=== PATIENT | male | born 1950 | race Caucasian/White ===

== ENCOUNTER → 2017-05-09 | Outpatient (CLI) | payer OTHER ==
[~2017-05-09] MED LIST: AZOR 5-40 MG T1 EACH PO; SYNTHROID100 MCG PO; TRAMADOL-ACETA1 EACH PO; VIMOVO 500-201 EACH; ZANAFLEX4 M1 PO
[2017-05-10 02:07] LABS: HBsAG-EMPLOYEE EXPOSURE Negative (Negative); HIV Ab-EMPLOYEE EXPOSURE Non Reactive (Non Reactive)
== END ==
LOC: M.LAB 11:04
PROVIDERS: Surgery
DX: Z11.59 Encounter for screening for other viral diseases (principal)

== ENCOUNTER → 2017-12-11 | Outpatient (CLI) | payer OTHER, MEDICARE | LOC: M.ULTRA 16:30 | DX: M79.89 Other specified soft tissue disorders (principal); M79.662 Pain in left lower leg ==